=== PATIENT | female | born 1950 | race Caucasian/White ===

== ENCOUNTER 2018-10-26 09:03 | Inpatient (IN) | payer MEDICARE, OTHER ==
[2018-10-16 12:59] VITALS: BMI 30.5
--- NOTE | 2018-10-25 06:56 | PREOPHP ---
DATE OF ADMISSION: 10/26/2018 REFERRING PHYSICIAN: Dr. Elijah Menjivar. REASON FOR REFERRAL: Preoperative medical consult evaluation. PLANNED PROCEDURE: At [facility] for a right shoulder total arthroplasty. PREOPERATIVE DIAGNOSIS: Degenerative osteoarthritis with rotator cuff tear of the right shoulder. PLANNED PROCEDURE: On 10/26/2018 at the [facility] for total right shoulder arthroplasty. HISTORY OF PRESENT ILLNESS: Thank you, Dr. Menjivar, for asking me to medically evaluate the patient. As you are very well aware, she is a 67-year-old right-handed female, recently retired, who has been having progressively increasing pain and discomfort in the right shoulder area over the past one and half years. She has had very limited range of motion including minimal abduction and flexion to only 70 degrees with extension of less than 5 degrees, and external rotation less than 15 degrees. There has been no recent falls or fractures, but she has strained her right arm over many years of repetitive activity. She has had several previous right shoulder strains, as well as the left shoulder, but as she is right handed this is really beginning to affect the quality of her life since retiring from [employer]. She is in continuous severe right shoulder pain due to degenerative osteoarthritis and the rotator cuff tear. She has been taking tramadol 50 mg several times daily to help ease the pain. As mentioned, has been difficult to do housework, cook in the kitchen and help her in a small hobby setup that they have created. The patient has a history of several medical problems, but none too severe and they are under good control with medication. 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 She has been doing more and more with her left hand, elbow and shoulder due to the pain in the right side. PAST MEDICAL HISTORY: Hyperlipidemia, hypertension, as well as hypothyroidism. No other recent chest pains or palpitations. PRESENT MEDICATIONS: Crestor 20 mg daily, amlodipine 10 mg daily, losartan 50 mg daily for blood pressure control, amitriptyline 40 mg daily as an adjunct for pain control, as well as aspirin 81 mg daily. She has been using the diclofenac 1 percent gel generic for Voltaren gel applying 2 inches up to 4 times a day to help ease the pain. She is on gabapentin 500 mg daily and she is also on Synthroid for hypothyroidism 0.175 mg daily. As mentioned earlier, she is on tramadol 50 mg q.8h as necessary for severe pain. PAST SURGICAL HISTORY: Right hip total arthroplasty in 2014, a left hip total arthroplasty in 2015. She underwent 2 lumbar spinal laminectomies in 2011 with L2 through L5 and in 2012 two levels of L2-L3, and L2-L5. She has had a cholecystectomy in 2002 and a right mastectomy for breast cancer in 2000. She wears a right breast prosthesis and she also has mild swelling in the right arm due to lymph node dissection in the right upper extremity with the mastectomy. She also had an appendectomy in 1976 and had tonsillectomy in 1971. The patient is concerned about right arm edema following the right shoulder arthroplasty and she has not been wearing her right arm compression dressing, but may require it postop. ALLERGIES: SHE HAS NO KNOWN ALLERGIES. SOCIAL HISTORY: She does not smoke any tobacco or tetrahydrocannabinol. Rarely has any alcohol intake. In the past was approximately 1-2 drinks per month. She is not taking any illicit drugs. She is , living with her in [place]. She has 1 grown son. 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 FAMILY HISTORY: Family history is relatively unremarkable. FUNCTION: The patient's energy level is down as is her appetite. Her weight is slightly down now at 199, although she would like to exercise more and she has gained a little weight due to lack of exercise. REVIEW OF SYSTEMS: HEAD AND NECK: Patient has slight hearing loss. No sinusitis. Normal voice quality and swallow. Fairly good dental hygiene. No recent vertigo. No tinnitus. Fully good vision and wears glasses for reading. No history of recent sinus pain or pressure, and no history of chronic cough. RESPIRATORY: No history of asthma, wheezing, or hemoptysis. No history of tuberculosis. CARDIOVASCULAR: History of hyperlipidemia and hypertension. No recent arrhythmias or ischemia. No ST-segment elevations. No acute myocardial infarctions. No history of any arrhythmias. No history of congenital heart disease. The patient has good blood pressure control with amlodipine 10 mg, losartan 50 mg, and is on aspirin 81 mg daily. GASTROINTESTINAL: No recent ulcers, hernias, or reflux. Status post cholecystectomy. No hiatal hernia symptoms. No inflammatory bowel disease or irritable bowel syndrome. No recent changes in the color, caliber, quality nor the consistency of her stools. No history of fecal incontinence, coffee-grounds emesis, or hematochezia. No history of any other irritable bowel symptoms. GENITOURINARY: History no dysuria, urgency, frequency, or renal stones. No recent urinary tract infections. The patient does not have any stress incontinence and has no other pain or passed renal stones. METABOLIC: The patient is hypothyroid and is on Synthroid supplement 0.175 mg daily. She has no history of type 2 diabetes. DERMATOLOGIC: No unusual rashes or ulcers, nor lesions. HEMATOLOGIC: No unusual bleeding disorders or blood dyscrasias. Patient has been instructed to stop taking any aspirin 10 days prior to surgery to help improve platelet aggregation. VASCULAR: No intermittent claudications, deep vein thrombosis or pulmonary emboli. BREAST: Right breast cancer status post mastectomy and right arm lymph node and axillary dissection. MUSCULOSKELETAL: Please see above history for details of right shoulder pain and degenerative osteoarthritis. Long history of chronic low back pain and multiple levels of spinal surgery in the past. PSYCH HISTORY: Mild depression. No history of anxiety. 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 No tremors. No short-term memory loss. Long history of chronic pain due to fibromyalgia. PREOPERATIVE MEDICAL CONSULT: GENERAL: The patient is seen at 10/17/2018 with no evidence of jaundice, pallor, or cyanosis. The patient was holding her right arm to protect it. VITAL SIGNS: On that examination included blood pressure of 118/90 with sitting and lying position with no evidence of orthostatic drop. Heart rate was 94 per minute, sinus rhythm, respiratory rate 18 per minute, temperature was 97.6 degrees Fahrenheit. Weight was 199 pounds. Height was 5 foot 8 inch, BMI was 30 and the O2 pulse oximetry on room air was 97 percent. SKIN: There was no evidence of jaundice, pallor. No cyanosis. HEAD AND NECK EXAM: Normocephalic. Pupils are equal, reactive to light with normal extraocular movements and unremarkable fundi. Sharp clear disc margins. Normal AV crossings and no blood hemorrhaging or exudates present on funduscopy. The sclera were normal as were the orbits and conjunctiva. Normal eyelids with no xanthelasmas detected. Normal eye tracking and no evidence of nystagmus to spontaneous evoked gaze. Nasal mucosa, septum and turbinates were unremarkable. Septum is fairly midline. No discharge or epistaxis. The external auditory canals and tympanic membranes were normal bilaterally. Normal oropharynx, buccal mucosa, tongue, floor of mouth is clear, as is the posterior pharyngeal wall. Uvula is midline. Normal hard and soft palate, tongue and floor of mouth, as is the tonsillar arches and base of tongue area. There is no cervical lymphadenopathy. Thyroid gland is not palpable. Trachea is midline. No accessory muscle use. No other enlarged lymph nodes detected as of the right or left neck. There is no evidence of extrathoracic stridor detected. CHEST EXAM: Reveals symmetrical chest wall expansion. Good air entry bilaterally. No evidence of any rales, rhonchi, or wheezes heard on auscultation and there is no prolonged expiratory phase. No evidence of any paradoxical chest wall motion. There is no dullness on percussion to both the right and left lung avila. There is a left breast present, which is normal on exam with no palpable masses or lesions. She has a well-healed scar over the right post mastectomy scar and there is a prosthesis present. There is no major axillary edema on the right side, none on the left and no other palpable masses or lesions detected in either the right or left axillary area. CARDIOVASCULAR EXAM: Reveals peripheral pulses present. No appreciable bruits. Normal S1, S2. No S3 or S4. No heaves or thrills. No pericardial friction rub is present at the point of maximal apical in the 4th intercostal space just lateral to the left midclavicular line with JVP at 2 cm above the sternal angle with the head at 30 degrees. There is no evidence of any pitting edema. He has good color and capillary refill in the finger in the toenail beds. The patient remained in sinus rhythm throughout the cardiovascular exam. There was minimal extra edema noted in the right hand or the right forearm area. ABDOMEN: Obese, soft, nontender, normal bowel sounds. No appreciable masses. No organomegaly. No evidence of peritonitis. No ascites. No periumbilical area pulsatile mass or evidence of the abdominal aortic aneurysm. The right and left upper quadrants were normal as was the epigastric area. There is no pain or tenderness in the right or left costovertebral angle on fist percussion. The spleen is not palpable. There is no discomfort on deep palpation over the right upper quadrant status post cholecystectomy. The right and left lower quadrants are normal as is the suprapubic area. No guarding or rebound tenderness. No peritonitis detected. PELVIC EXAM: Deferred at this time, but recent pelvic exam was unremarkable including the introitus, vaginal mucosa, and adnexal area. RECTAL EXAM: Rectal exam at that time was also unremarkable with a normal rectal-septal vaginal wall. Normal sphincter tone. No external or internal hemorrhoids. Stools were guaiac negative and no evidence of any polyps or other masses in the rectal vault. DERMATOLOGIC: Exam revealed no unusual rashes, ulcers, nor lesions. A few solar and actinic keratoses are present. Some well-healed scars especially over the right chest wall from the previous mastectomy. A few well-healed scars of the knees status post bilateral hip arthroplasty. Well-healed scars in the midline from previous diskectomy. MUSCULOSKELETAL: Exam with attention first to the right shoulder reveals the patient holding her arm, guarding it with limited range of motion due to the great pain. Very minimal flexion and extension due to pain. No abduction, no external rotation possible. Point tenderness over the acromioclavicular joint area, as well as over the scapular area in the coracoid region. There is marked spasm and tenderness at the base of the right neck, as well as in the scapular area. The left shoulder appeared normal fairly good range of motion to flexion, extension, and abduction. There is no evidence of proximal and distal muscle wasting in the right or left arm and there is a weaker right hand distal supervisor sewer system strength compared to the left side. The right and left knees are well healed and the right and left hip areas are also well healed with normal flexion and extension and external rotation of both the right and left hip. There is a slightly wide-based stance and gait. There is no evidence of any muscle fasciculation or abnormal muscle atrophy detected. The deep tendon reflexes are symmetric bilaterally in the lower extremities including the ankles and the knees and there is normal right and left elbow and wrist reflexes detected in the hands. The patient has no clonus or evidence of any other proximal muscle atrophy in the right arm. 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 Good hygiene. Reports appropriate thought content and processes and an appropriate affect. Normal cognitive functions to brief examination. Cranial nerves 2-12 intact with normal motor and sensory systems to brief examination. All posterior column modalities are intact with respect to proprioception and vibration sense. As mentioned earlier the deep tendon reflexes are symmetric and bilaterally. DIAGNOSTIC DATA: The preoperative EKG reveals sinus rhythm, 84 beats per minute. Normal axis. Normal RI, QRS intervals, mildly prolonged QT interval. No significant Q-waves. There is a slight right ventricular hypertrophy, normal T-waves, P-waves and no evidence of any ectopy. Normal ST segments. In summary, the patient was sinus 84 per minute with no ectopy. Mild right ventricular hypertrophy. No other interval changes detected from previous EKGs. The preoperative chest x-ray was also unremarkable that was done on 10/17/2018, which showed no acute disease, clear lung avila, normal vascular markings, normal bony ribs and sternum, normal mediastinum and no evidence of any effusions, sharp costodiaphragmatic angles bilaterally. The heart was not enlarged. No evidence of vascular congestion and no evidence of a pneumothorax. In summary normal chest x-ray on 10/17/2018 with no acute disease. PREOPERATIVE LABORATORY WORK: Which was done on 10/18/2018 revealed a normal CBC. The white count was 5100, hemoglobin 14, hematocrit 40%, and the platelets were 275,000. The total red cell count was 4.1 million with normal differential and normal RBC morphology. The glucose was 81 mg/dL fasting. BUN 50, creatinine was 0.7. The EGFR was 89 mils/minute. There was a normal chemistry panel, the sodium was 142, potassium 4.0, chloride 101, CO2 was 21, anion gap was 24, calcium 8.6, osmolality 283. Normal protein, albumin and globulin. Alkaline phosphatase is 115, SGOT was 23, SGPT was 16, and total bilirubin 0.4. Coagulations are normal. The PT was 10.3. The INR was 0.99, and the PTT was 35.1 seconds and normal is 28-40 seconds. ASSESSMENT: In brief, the patient is a 67-year-old female who is right handed. She has had a long history of increasing pain and discomfort in the right shoulder due to rotator cuff injury and degenerative osteoarthritis. She now has very minimal range of motion due to pain and is on chronic pain medications including gabapentin and tramadol to help ease her pain. The patient is medically stable for epidural block and undergo elective right shoulder total arthroplasty. The plan at present is for elective admission to the [facility] on 10/26/2018. The patient has had adequate time to review the risks, benefits, and alternatives to surgery. After having all her questions reviewed, answered and understood, has consented to this operative procedure. The patient understands postoperatively she will be placed in a knee immobilizer sling where she will be resting her right arm to prevent injury to the wound site or to the suturing. Once home, she will be started with Home Care using [facility] to care for the wound and start early physical therapy when it is appropriate. The patient only has her at home and he has only limited ability to help take care of her. [facility] has been informed and they are waiting and ready when she has returned home from surgery. Patient understands that there maybe postoperative pain, bleeding, infection, and may require further surgery if necessary. The patient has been instructed to stop all aspirin 10 days prior to surgery. Increase her fiber intake to prevent postoperative narcotic pain medication induced constipation and she will correctly arleth the right shoulder for correct site surgery. Thank you, Dr. Menjivar for asking me to medically evaluate the patient and I trust this information with be of assistance in her continuing care. I will certainly be available during her postop recovery at home if any further medical problems should arise. DR. JACI MCKEON DICTATING PRE-OP HISTORY AND PHYSICIAL FOR DR. ELIJAH MENJIVAR. Dictated By: AUTHOR ANGELIA MERLOS/veronica/salas /Document#: [id number] CC: ELIJAH MENJIVAR MD; Dr Jaci Mckeon FAX [phone] PHONE ;*[facility]*
[~2018-10-26] VITALS: Ht 172.7 cm; Wt 104.4 kg
[2018-10-26] VITALS (19 sets, daily range): BP systolic 100–137; BP diastolic 55–89; PULSE 101–114; RESP 15–22; Ht 172.7 cm; Wt 104.4 kg
[~2018-10-26 09:03] MED LIST: AMIT10TA6 PO; AMLO-147 PO; ASPI-817 PO; GABA-526 PO; LEVO175T2 PO; LOSA1TAB25 PO; ROSU20TA PO; TRAM50TA2 PO
[2018-10-26] MEDS ORDERED: AMIT10TA6 PO (10:05)
[2018-10-26] MEDS ORDERED: GABA-526 PO (10:16)
[2018-10-26] MEDS ORDERED: ACETAMINOPHEN 1000MG/100ML IV 100 ML IVPB ONE (12:00)
[2018-10-26] MEDS ORDERED: TRANEXAMIC ACID 1,000 MG in D5W 100 ML AT INCISION X1 IVPB ONE (12:00)
[2018-10-26] MEDS ORDERED: LACTATED RINGER'S 1,000 ML IV SCH (12:00)
[2018-10-26] MEDS ORDERED: DEXAMETHASONE 4 MG/ML 1 ML INJ IV ONE (12:00)
[2018-10-26] MEDS ORDERED: CEFAZOLIN 2 GM/50 ML (PMX) 50 ML (FOR WT < 120 KG) IVPB ONE (12:00)
--- NOTE | 2018-10-26 12:01 | PREAC ---
Date/Time of Note Date/Time of Note DATE: 10/26/18 TIME: 11:55 Anesthesia Eval and Record Evaluation Time Pre-Procedure Interview DATE: 10/26/18 TIME: 11:55 Age 68 Sex female NPO: 8 hrs Preoperative diagnosis right shoulderritator cuff tear arthropathgy Planned procedure right shoulder total replacement Past Medical History Past Medical History: Includes Cardio: HTN, Dyslipidemia Endo: Hypothyroid Surgery & Anesthesia Issues No known issue Meds Anticoagulation: No Beta Elsy within 24 hr: No Reason Beta Elsy not given: Pt. not on B-Elsy Reported Medications Gabapentin* (Gabapentin*) 600 Mg Tablet, 600 MG PO FIVE TIMES DAILY, #60 TAB 10/26/18 Amitriptyline Hcl* (Amitriptyline Hcl*) 10 Mg Tablet, 10 MG PO QID, #30 TAB 10/26/18 Tramadol HCl (Tramadol HCl) 50 Mg Tablet, 50 MG PO Q6 PRN for PAIN, #120 TAB 10/16/18 Aspirin* (Aspirin* EC) 81 Mg Tablet.dr, 81 MG PO DAILY, TAB 10/16/18 Rosuvastatin Calcium* (Crestor*) 20 Mg Tablet, 20 MG PO QHS, #30 TAB 10/16/18 Losartan-Hydrochlorothiazide (Losartan-HCTZ) 100-25 Mg Tab, 1 TAB PO DAILY, TAB 10/16/18 Amlodipine Besylate* (Amlodipine Besylate*) 10 Mg Tablet, 10 MG PO DAILY, #30 TAB 10/16/18 Levothyroxine Sodium* (Synthroid*) 175 Mcg Tablet, 175 MCG PO BEFORE BREAKFAST, #30 TAB 10/16/18 Discontinued Reported Medications Amitriptyline Hcl* (Amitriptyline Hcl*) 10 Mg Tablet, 10 MG PO QHS, #30 TAB 10/16/18 Gabapentin* (Gabapentin*) 600 Mg Tablet, 600 MG PO BID, #60 TAB 10/16/18 Current Medications Lactated Ringer's 1,000 ml @ 125 mls/hr Q8H IV Last administered on 10/26/18at 10:10; Admin Dose 125 MLS/HR; Start 10/26/18 at 12:00; Stop 10/26/18 at 16:00 Cefazolin Sodium/ Dextrose 50 ml @ 100 mls/hr PRE-OP ONCE IVPB ; Start 10/26/18 at 12:00; Stop 10/26/18 at 12:29 Tranexamic Acid 1000 mg/Dextrose 110 ml @ 330 mls/hr AT INCISION ONCE IVPB ; Start 10/26/18 at 12:00; Stop 10/26/18 at 12:19 Tranexamic Acid 1000 mg/Dextrose 110 ml @ 330 mls/hr AT CLOSURE ONCE IVPB ; Start 10/26/18 at 13:30; Stop 10/26/18 at 13:49 Dexamethasone (Decadron) 4 mg ONCE ONCE IV Last administered on 10/26/18at 09:51; Admin Dose 4 MG; Start 10/26/18 at 12:00; Stop 10/26/18 at 12:01 Ropivacaine/ Clonidine/ Epinephrine/ Ketorolac Tromethamine/ Sodium Chloride INTRA-OP ONCE IRR ; Start 10/26/18 at 13:30; Stop 10/26/18 at 13:31 Acetaminophen 100 ml @ 400 mls/hr PRE-OP ONCE IVPB Last administered on 10/26/18at 10:10; Admin Dose 400 MLS/HR; Start 10/26/18 at 12:00; Stop 10/26/18 at 12:14 Meds reviewed: Yes Allergies Coded Allergies: No Known Allergy (Unverified , 10/26/18) Allergies Reviewed: Yes Labs/Studies Labs Reviewed: Reviewed by anesthesiologist Blood Bank Test 10/26/18 09:50 Antibody Screen NEGATIVE Blood Type O POSITIVE test: N/A Studies: ECG (sr), CXR (nl) Pre-procedure Exam Last vitals Vital Signs Date Temp Pulse Resp B/P (MAP) Pulse Ox O2 O2 Flow FiO2 Time Delivery Rate 10/26/18 98.5 105 18 137/89 99 Room Air 10:03 (105) Airway: Adequate mouth opening Mallampati: Mallampati I Teeth: Normal Lung: Normal Heart: Normal ASA Physical Status ASA physical status: 2 Emergency: None Planned Anesthetic General/MAC: ETT, LMA Nerve block: Brachial plexus (right) Planned Pain Management Single shot nerve block Pre-operative Attestations Prior to commencing anesthesia and surgery, the patient was re-evaluated, there was verification of: *The patient's identity *The results of appropriate recent lab work and preoperative vital signs *The above evaluation not changing prior to induction *Anesthetic plan, risk benefits, alternative and complications discussed with patient/family; questions answered; patient/family understands, accepts and wishes to proceed. RANDALL NEGRON MD Oct 26, 2018 12:01
[2018-10-26] MEDS ORDERED: FENTAnyl 50 MCG/ML VIAL ONE (12:05)
[2018-10-26] MEDS ORDERED: PROPOFOL 20 ML ONE (12:05)
[2018-10-26] MEDS ORDERED: POLYMYXIN B 500000 UNIT INJ ONE (12:05)
[2018-10-26] MEDS ORDERED: ROPIVACAINE 0.2% 20 ML VIAL ONE (12:07)
[2018-10-26] MEDS ORDERED: METOCLOPRAMIDE 10 MG INJ ONE (12:07)
[2018-10-26] MEDS ORDERED: ONDANSETRON 4 MG INJ ONE (12:07)
[2018-10-26] MEDS ORDERED: MIDAZOLAM 1 MG/ML 2 ML INJ ONE (12:08)
[2018-10-26] MEDS ORDERED: hydrALAzine 20 MG INJ IV PRN (12:30)
[2018-10-26] MEDS ORDERED: HYDROmorphONE 1 MG/5 ML IV SYRINGE IV PRN ×3 (12:30)
[2018-10-26] MEDS ORDERED: OXYCODONE/ACETAMINOPHEN (5/325) TAB PO PRN ×2 (12:30)
[2018-10-26] MEDS ORDERED: ONDANSETRON 4 MG INJ IV PRN (12:30)
[2018-10-26] MEDS ORDERED: MEPERIDINE 25 MG INJ IV PRN (12:30)
[2018-10-26] MEDS ORDERED: LABETALOL HCL 20MG INJ IV PRN (12:30)
[2018-10-26] MEDS ORDERED: DIPHENHYDRAMINE 50 MG INJ IV PRN (12:30)
[2018-10-26] MEDS ORDERED: NEOSTIGMINE 3 MG/3 ML SYRINGE ONE (12:32)
[2018-10-26] MEDS ORDERED: GLYCOPYRROLATE 0.4 MG INJ ONE (12:32)
[2018-10-26] MEDS ORDERED: BACITRACIN 50000 UNITS INJ IRR ONE (13:24)
[2018-10-26] MEDS ORDERED: TRANEXAMIC ACID 1,000 MG in D5W 100 ML AT CLOSURE X1 IVPB ONE (13:30)
[2018-10-26] MEDS ORDERED: EPHEDrine 25 MG/5 ML SYG ONE (14:05)
--- NOTE | 2018-10-26 14:46 | HPN ---
Date/Time of Note Date/Time of Note DATE: 10/26/18 TIME: 14:46 Interval H&P Admission Note Pt. seen H&P reviewed: No system changes ELIJAH MENJIVAR Oct 26, 2018 14:46
--- NOTE | 2018-10-26 14:48 | SIPON ---
Date/Time of Note Date/Time of Note DATE: 10/26/18 TIME: 14:47 Operative Report Preoperative Diagnosis Right shoulder cuff tear arthropathy Postoperative Diagnosis Same Operation/Procedure Performed Right total shoulder replacement, reverse prosthesis Surgeon see signature line bilingual executive assistant DIANE Kebede Anesthesia: general Estimated blood loss: 250 - 300 ml's Transfusion Required none Specimen Bone Grafts/Implants [place] shoulder, size 12 stem, 3 mm polyethylene, 42 mm Glenosphere Complications none ELIJAH MENJIVAR Oct 26, 2018 14:48
[2018-10-26] MEDS ORDERED: MAGNESIUM HYDROXIDE 30ML CUP PO PRN (15:00)
[2018-10-26] MEDS ORDERED: oxyCODONE 5 MG TAB PO PRN (15:00)
[2018-10-26] MEDS: CEFAZOLIN 1 GM/50 ML (PMX) 50 ML IVPB SCH ×2 (15:37→23:29)
--- NOTE | 2018-10-26 16:25 | PAC ---
Date/Time of Note Date/Time of Note DATE: 10/26/18 TIME: 16:25 Post-Anesthesia Notes Post-Anesthesia Note Last documented vital signs Vital Signs Date Temp Pulse Resp B/P (MAP) Pulse Ox O2 O2 Flow FiO2 Time Delivery Rate 10/26/18 98.0 102 16 111/69 96 Room Air 16:06 (83) 10/26/18 98.0 15:24 10/26/18 8.0 15:21 Activity: WNL Respiratory function: WNL Cardiovascular function: WNL Mental status: Baseline Pain reasonably controlled: Yes Hydration appropriate: Yes Nausea/Vomiting absent: No RANDALL NEGRON MD Oct 26, 2018 16:25
[2018-10-26] MEDS: LACTATED RINGER'S 1,000 ML IV SCH ×2 (17:00→19:20)
--- NOTE | 2018-10-26 17:55 | OPR ---
Date/Time of Note Date/Time of Note DATE: 10/26/18 TIME: 17:51 Operative Report Procedure Date: Oct 26, 2018 Preoperative Diagnosis Rotator cuff tear arthropathy right shoulder. Postoperative Diagnosis Same Operation/Procedure Performed Right total shoulder replacement, reverse prosthesis Surgeon see signature line Ham Trimmer DIANE Kebede Anesthesia Type: general Estimated Blood Loss: 150 - 200 ml's Transfusion none Specimen Humeral head Grafts/Implants [place] shoulder, size 12 stem, 3 mm of polyethylene, 42 mm glenoid sphere Tubes/Drains None Complications none Pt Condition Post Procedure: stable Disposition: PACU Indications Cuff tear arthropathy of the right shoulder Procedure Description The patient was placed in a beachchair position. The right shoulder was prepped and draped in usual manner. A deltopectoral approach was used. The cephalic vein was identified and retracted laterally. The deltoid was retracted laterally and the conjoined tendon retracted medially. There was evidence of massive rotator cuff tear with retraction. The shoulder was entered 1 cm medial to the biceps tendon. Biceps tenodesis was done. Severe osteoarthritis was noted. The glenoid had significant arthritis as well. The humeral preparation was done for a reverse shoulder. The head cut was made in 30 degrees of retroversion. The IM canal was prepared for a size 12 stem. The glenoid was prepared for a baseplate. The baseplate was secured with 4 screws. A 42 mm glenoid sphere was placed. The trial stem with a 3 mm polyethylene resulted in a stable shoulder with good range of motion. The final stem was assembled and placed to the appropriate depth. 3 mm of polyethylene resulted in a stable shoulder with good range of motion. The shoulder was injected with pain cocktail. The cephalic vein was repaired. The wound was closed in layers using 2-0 Vicryl for subcutaneous tissue, #2 Ethibond for subscapularis, 3-0 Monocryl for the skin. Patient was transferred to the recovery room in stable condition ELIJAH MENJIVAR Oct 26, 2018 17:55
[2018-10-26] MEDS: oxyCODONE 5 MG TAB PO PRN (21:46)
[2018-10-27 00:01] VITALS: BP 105/70; PULSE 78; RESP 18
[2018-10-27] MEDS: oxyCODONE 5 MG TAB PO PRN ×2 (03:33→07:17)
[2018-10-27 04:28] VITALS: BP 118/73; PULSE 82; RESP 18
[2018-10-27] MEDS: CEFAZOLIN 1 GM/50 ML (PMX) 50 ML IVPB SCH (06:18)
[2018-10-27 07:27] VITALS: BP 109/69; PULSE 72; RESP 19
[2018-10-27] MEDS ORDERED: oxyCODONE 15 MG TAB PO PRN (09:00)
[2018-10-27] MEDS ORDERED: ASPIRIN 81 MG TAB PO SCH (09:00)
--- NOTE | 2018-10-27 09:01 | PN ---
Date/Time of Note Date/Time of Note DATE: 10/27/18 TIME: 08:59 Assessment/Plan Lines/Catheters IV Catheter Type (from Nrsg): Peripheral IV Assessment/Plan Assessment/Plan Postop day 1 after right shoulder replacement. Pain medication will be increased. The patient is encouraged to come out of the sling and do some exercises. She is encouraged to sit up in a chair. Patient will be discharged home today in follow-up in 2 weeks Subjective 24 Hr Interval Summary Patient is status post right reverse shoulder replacement. She is complaining of significant pain. She had questions about her right arm sling. All questions have been answered Exam/Review of Systems Vital Signs Vitals Vital Signs Date Temp Pulse Resp B/P (MAP) Pulse Ox O2 O2 Flow FiO2 Time Delivery Rate 10/27/18 97.2 72 19 109/69 96 Room Air 07:27 (82) 10/26/18 8.0 15:21 Intake and Output 10/26/18 10/26/18 10/27/18 1515:00 23:00 07:00 IntakeIntake Total 1500 ml 1100 ml 700 ml OutputOutput Total 150 ml 200 ml BalanceBalance 1350 ml 900 ml 700 ml Exam Free Text/Dictation Right shoulder dressing is intact. There is no neurovascular deficit. Mild swelling is noted. Results Result Diagram: 10/27/18 0435 10/27/18 0435 ELIJAH MENJIVAR Oct 27, 2018 09:01
--- NOTE | 2018-10-27 09:04 | DS ---
Date/Time of Note Date/Time of Note DATE: 10/27/18 TIME: 09:03 Discharge Summary Admission/Discharge Info Admit Date/Time Oct 26, 2018 at 09:03 Discharge Date/Time October 27, 2018 Discharge Diagnosis Right total shoulder replacement Patient Condition: Good Hospital Course The patient underwent right shoulder replacement using the reverse prosthesis on October 26, 2018. Patient is doing well with activity. There is no evidence of infection or DVT. Pain is reasonably controlled with oral pain medication. The patient will be discharged home with home health care and follow-up in 2 weeks Home Meds Reported Medications Gabapentin* (Gabapentin*) 600 Mg Tablet, 600 MG PO FIVE TIMES DAILY, #60 TAB 10/26/18 Amitriptyline Hcl* (Amitriptyline Hcl*) 10 Mg Tablet, 10 MG PO QID, #30 TAB 10/26/18 Tramadol HCl (Tramadol HCl) 50 Mg Tablet, 50 MG PO Q6 PRN for PAIN, #120 TAB 10/16/18 Aspirin* (Aspirin* EC) 81 Mg Tablet.dr, 81 MG PO DAILY, TAB 10/16/18 Rosuvastatin Calcium* (Crestor*) 20 Mg Tablet, 20 MG PO QHS, #30 TAB 10/16/18 Losartan-Hydrochlorothiazide (Losartan-HCTZ) 100-25 Mg Tab, 1 TAB PO DAILY, TAB 10/16/18 Amlodipine Besylate* (Amlodipine Besylate*) 10 Mg Tablet, 10 MG PO DAILY, #30 TAB 10/16/18 Levothyroxine Sodium* (Synthroid*) 175 Mcg Tablet, 175 MCG PO BEFORE BREAKFAST, #30 TAB 10/16/18 Discontinued Reported Medications Amitriptyline Hcl* (Amitriptyline Hcl*) 10 Mg Tablet, 10 MG PO QHS, #30 TAB 10/16/18 Gabapentin* (Gabapentin*) 600 Mg Tablet, 600 MG PO BID, #60 TAB 10/16/18 Primary Care Provider Not On Staff Doctor Time spent on discharge: < 30 minutes Pending Labs Laboratory Tests Test 10/27/18 04:35 10/27/18 07:38 White Blood Count 11.4 10^3/ul (4.8-10.8) Red Blood Count 3.51 10^6/ul (4.20-5.40) Hemoglobin 11.1 g/dl (12.0-16.0) Hematocrit 33.9 % (37.0-47.0) Mean Corpuscular Volume 96.6 fl (82.0-101.0) Mean Corpuscular Hemoglobin 31.6 pg (29.0-33.0) Mean Corpuscular 32.7 g/dl (32.0-37.0) Hemoglobin Concent Red Cell Distribution Width 12.6 % (11.5-14.5) Platelet Count 244 10^3/UL (140-415) Mean Platelet Volume 9.4 fl (7.4-10.4) Immature Granulocytes % 0.600 % (0.001-0.429) Neutrophils % 76.1 % (39.0-77.0) Lymphocytes % 13.0 % (15.0-51.0) Monocytes % 9.6 % (0.0-11.0) Eosinophils % 0.3 % (0.0-7.0) Basophils % 0.4 % (0.0-2.0) Nucleated Red Blood Cells % 0.0 /100WBC (0.0-0.0) Immature Granulocytes # 0.070 10^3/ul (0.0-0.031) Neutrophils # 8.7 10^3/ul (1.6-7.5) Lymphocytes # 1.5 10^3/ul (0.8-2.9) Monocytes # 1.1 10^3/ul (0.3-0.9) Eosinophils # 0.0 10^3/ul (0.0-0.5) Basophils # 0.1 10^3/ul (0.0-0.1) Nucleated Red Blood Cells # 0.0 10^3/ul (0.0-0.0) Sodium Level 139 mmol/L (135-144) Potassium Level 3.9 mmol/L (3.5-5.1) Chloride Level 102 mmol/L (97-110) Carbon Dioxide Level 30 mmol/L (21-31) Anion Gap 7 (5-13) Blood Urea Nitrogen 19 mg/dl (7-20) Creatinine 0.72 mg/dl (0.44-1.00) Est Glomerular Filtrat > 60 mL/min (>60) Rate mL/min Glucose Level 113 mg/dl (70-220) Calcium Level 8.8 mg/dl (8.4-10.2) Lab Scanned Report [facility] [id number] ELIJAH MENJIVAR Oct 27, 2018 09:04
== END 2018-10-27 12:23 | disposition home health service (06) | DRG 483 ==
LOC: REC 09:03 → MS1 16:38
PROVIDERS: ADMIT Orthopaedic Surgery; ATTEND Orthopaedic Surgery
PROC: 0RRJ00Z Replacement of Right Shoulder Joint with Reverse Ball and Socket Synthetic Substitute, Open Approach (ICD-10-PCS; principal; 2018-10-26 11:00)
DX: M19.011 Primary osteoarthritis, right shoulder (principal); M75.101 Unspecified rotator cuff tear or rupture of right shoulder, not specified as traumatic; I10 Essential (primary) hypertension; E78.5 Hyperlipidemia, unspecified; E03.9 Hypothyroidism, unspecified; F32.9 Major depressive disorder, single episode, unspecified; Z90.11 Acquired absence of right breast and nipple; Z85.3 Personal history of malignant neoplasm of breast
CPT/HCPCS: 80048; 85025; 86850; 86900; 86901; 87081; 88304; 88311; 97161; 97167; C1776; J0131; J0171; J0690; J0735; J1100; J1885; J2250; J2405; J2710; J2765; J2795; J3010; J7120